=== PATIENT | female | born 1955 ===

== ENCOUNTER 2021-03-25 04:36 | Emergency (ER) | payer MEDICARE ==
--- NOTE | 2021-03-25 05:55 | Cat Scan Report ---
CT head/brain wo con INDICATION: Frontal headache, pain on eyes. TECHNIQUE: Routine CT head. All CT scans at this location are performed using CT dose reduction for A ANDREA by means of automated exposure control. COMPARISON: None. FINDINGS: Intracranial: Ortiz-white matter differentiation is maintained. No intracranial hemorrhage. No extra a xial collection. No hydrocephalus. No herniation. Sinuses: Paranasal sinuses and mastoid air cells are essentially clear. Orbits: Globes are intact. Calvarium: No acute fracture. IMPRESSION: 1. No acute intracranial abnormality. Signer Name: Anthony Olivares MD Signed: 03/25/2021 5:50 AM Workstation Name: [id number]
[2021-03-25 06:10] LABS: Basophils % (Auto) 0.4 % (0.0-1.8); Eosinophils % (Auto) 0.4 % (0.0-4.3); Hematocrit 39.2 % (30.3-42.9); Hemoglobin 13.4 gm/dl (10.1-14.3); Lymphocytes # (Auto) 2.3 K/mm3 (1.2-5.4); Lymphocytes % (Auto) 30.1 % (13.4-35.0); Mean Corpuscular HGB Conc 34 % (30-34); Mean Corpuscular Volume 87 fl (79-97); Monocytes # (Auto) 0.8 K/mm3 (0.0-0.8); Monocytes % (Auto) 10.1 % (0.0-7.3); Platelet Count 383 K/mm3 (140-440); Red Cell Distribution Width 14.6 % (13.2-15.2)
[2021-03-25 06:29] LABS: Albumin 4.7 g/dL (3.9-5)
[2021-03-25] MEDS ORDERED: FAMOTIDINE 20 MG/2 ML INJ IV ONE (07:54)
[2021-03-25] MEDS ORDERED: SODIUM CHLORIDE 0.9% 500 ML 500 ML IV ONE (07:54)
[2021-03-25] MEDS ORDERED: ONDANSETRON 4 MG/2 ML INJ IV ONE (07:55)
--- NOTE | 2021-03-25 07:57 | Emergency Department Report ---
HPI - General Chief Complaint: Weakness Time Seen by Provider: 03/25/21 07:34 - HPI HPI: This is a 66-year-old female presents to the emergency department with a complaint of a frontal headache, pain around both eyes, epigastric discomfort, and nausea with vomiting, has been going on since about 1 PM yesterday. Patient has history of GERD, hypertension, TIA, hypothyroidism. She has not yet taken anything for symptoms prior to presentation. She says that her blood pressure was labile yesterday and may be that was the cause. Her primary care physician is Dr. Kurt Triana, but she has not been able to see him regarding her symptoms. No recent travel or sick contacts at home. Patient is vaccinated against COVID-19. She denies any fever, chest pain, shortness of breath, constipation, diarrhea, dysuria. ED Past Medical Hx - Past Medical History Previous Medical History?: Yes Hx Hypertension: Yes Hx GERD: Yes Additional medical history: TIA, hypothyroidism - Surgical History Past Surgical History?: Yes Additional Surgical History: sinus, knee/both, tubal ligation, partial hysterectomy, hemorrhoidectomy - Medications Home Medications: Home Medications Medication Instructions Recorded Confirmed Last Taken Type Butalb/Acetamin/Caff 50-325-40 1 tab PO Q8H PRN #10 tab 03/25/21 Unknown Rx [Fioricet 50-325-40] Omeprazole 20 mg PO QDAY #20 capsule. 03/25/21 Unknown Rx Ondansetron [Zofran Odt] 4 mg PO Q8HR PRN #15 tab.rapdis 03/25/21 Unknown Rx ED Review of Systems ROS: Stated complaint: HIGH BP/LEFT EYE PAIN Other details as noted in HPI Comment: All other systems reviewed and negative Constitutional: weakness. denies: chills, fever Eyes: denies: eye discharge, vision change ENT: denies: ear pain, throat pain Respiratory: denies: cough, shortness of breath Cardiovascular: denies: chest pain, palpitations Gastrointestinal: abdominal pain, nausea, vomiting Genitourinary: denies: dysuria, discharge Musculoskeletal: denies: back pain, arthralgia Skin: denies: rash, lesions Neurological: headache. denies: numbness, paresthesias Physical Exam - Physical Exam Vital Signs: Vital Signs 03/25/21 04:44 Temperature 98.5 F Pulse Rate 100 H Respiratory 18 Rate Blood Pressure 156/91 O2 Sat by Pulse 98 Oximetry Physical Exam: GENERAL: The patient is well-developed well-nourished. HENT: Normocephalic. Atraumatic. Patient has moist mucous membranes. EYES: Extraocular motions are intact. No nystagmus. NECK: Supple. Trachea is midline. CHEST/LUNGS: Clear to auscultation. There is no respiratory distress noted. HEART/CARDIOVASCULAR: Regular. There is no tachycardia. There is no murmur. ABDOMEN: Abdomen is soft. Mild epigastric tenderness to palpation. No guarding.. Patient has normal bowel sounds. There is no abdominal distention. SKIN: Skin is warm and dry. NEURO: The patient is awake, alert, and oriented. The patient is cooperative. The patient has no focal neurologic deficits. Normal speech. Cranial nerves II through XII grossly intact. No facial asymmetry. No pronator drift or dysmetria. MUSCULOSKELETAL: There is no tenderness or deformity. There is no limitation range of motion. ED Course Vital Signs 03/25/21 04:44 Temperature 98.5 F Pulse Rate 100 H Respiratory 18 Rate Blood Pressure 156/91 O2 Sat by Pulse 98 Oximetry ED Medical Decision Making - Lab Data Result diagrams: 03/25/21 05:45 03/25/21 05:45 Lab Results 03/25/21 03/25/21 03/25/21 Range/Units 05:45 05:45 08:01 WBC 7.5 (4.5-11.0) K/mm3 RBC 4.50 (3.65-5.03) M/mm3 Hgb 13.4 (10.1-14.3) gm/dl Hct 39.2 (30.3-42.9) % MCV 87 (79-97) fl MCH 30 (28-32) pg MCHC 34 (30-34) % RDW 14.6 (13.2-15.2) % Plt Count 383 (140-440) K/mm3 Lymph % (Auto) 30.1 (13.4-35.0) % [place] % (Auto) 10.1 H (0.0-7.3) % Eos % (Auto) 0.4 (0.0-4.3) % Baso % (Auto) 0.4 (0.0-1.8) % Lymph # (Auto) 2.3 (1.2-5.4) K/mm3 [place] # (Auto) 0.8 (0.0-0.8) K/mm3 Eos # (Auto) 0.0 (0.0-0.4) K/mm3 Baso # (Auto) 0.0 (0.0-0.1) K/mm3 Seg Neutrophils % 59.0 (40.0-70.0) % Seg Neutrophils # 4.4 (1.8-7.7) K/mm3 Sodium 142 (137-145) mmol/L Potassium 4.1 (3.6-5.0) mmol/L Chloride 103.6 (98-107) mmol/L Carbon Dioxide 27 (22-30) mmol/L Anion Gap 16 mmol/L BUN 14 (7-17) mg/dL Creatinine 1.0 (0.6-1.2) mg/dL Estimated GFR 55 ml/min BUN/Creatinine Ratio 14 % Glucose 95 (65-100) mg/dL Calcium 10.0 (8.4-10.2) mg/dL Total Bilirubin 0.30 (0.1-1.2) mg/dL AST 17 (5-40) units/L ALT 14 (7-56) units/L Alkaline Phosphatase 116 (35-129) units/L Total Creatine Kinase 71 (30-135) units/L Troponin T < 0.010 (0.00-0.029) ng/mL Total Protein 7.5 (6.3-8.2) g/dL Albumin 4.7 (3.9-5) g/dL Albumin/Globulin Ratio 1.7 % TSH (0.270-4.200) mlU/mL Urine Color (Yellow) Urine Turbidity (Clear) Urine pH (5.0-7.0) Ur Specific [place] (1.003-1.030) Urine Protein (Negative) mg/dL Urine Glucose (UA) (Negative) mg/dL Urine Ketones (Negative) mg/dL Urine Blood (Negative) Urine Nitrite (Negative) Urine Bilirubin (Negative) Urine Urobilinogen (<2.0) mg/dL Ur Leukocyte Esterase (Negative) Urine WBC (Auto) (0.0-6.0) /HPF Urine RBC (Auto) (0.0-6.0) /HPF U Epithel Cells (Auto) (0-13.0) /HPF Hyaline Casts /LPF Urine Mucus /HPF 03/25/21 03/25/21 Range/Units 08:01 Unknown WBC (4.5-11.0) K/mm3 RBC (3.65-5.03) M/mm3 Hgb (10.1-14.3) gm/dl Hct (30.3-42.9) % MCV (79-97) fl MCH (28-32) pg MCHC (30-34) % RDW (13.2-15.2) % Plt Count (140-440) K/mm3 Lymph % (Auto) (13.4-35.0) % [place] % (Auto) (0.0-7.3) % Eos % (Auto) (0.0-4.3) % Baso % (Auto) (0.0-1.8) % Lymph # (Auto) (1.2-5.4) K/mm3 [place] # (Auto) (0.0-0.8) K/mm3 Eos # (Auto) (0.0-0.4) K/mm3 Baso # (Auto) (0.0-0.1) K/mm3 Seg Neutrophils % (40.0-70.0) % Seg Neutrophils # (1.8-7.7) K/mm3 Sodium (137-145) mmol/L Potassium (3.6-5.0) mmol/L Chloride (98-107) mmol/L Carbon Dioxide (22-30) mmol/L Anion Gap mmol/L BUN (7-17) mg/dL Creatinine (0.6-1.2) mg/dL Estimated GFR ml/min BUN/Creatinine Ratio % Glucose (65-100) mg/dL Calcium (8.4-10.2) mg/dL Total Bilirubin (0.1-1.2) mg/dL AST (5-40) units/L ALT (7-56) units/L Alkaline Phosphatase (35-129) units/L Total Creatine Kinase (30-135) units/L Troponin T (0.00-0.029) ng/mL Total Protein (6.3-8.2) g/dL Albumin (3.9-5) g/dL Albumin/Globulin Ratio % TSH 0.856 (0.270-4.200) mlU/mL Urine Color Yellow (Yellow) Urine Turbidity Clear (Clear) Urine pH 5.0 (5.0-7.0) Ur Specific [place] 1.023 (1.003-1.030) Urine Protein <15 mg/dl (Negative) mg/dL Urine Glucose (UA) Neg (Negative) mg/dL Urine Ketones Tr (Negative) mg/dL Urine Blood Neg (Negative) Urine Nitrite Neg (Negative) Urine Bilirubin Neg (Negative) Urine Urobilinogen < 2.0 (<2.0) mg/dL Ur Leukocyte Esterase Neg (Negative) Urine WBC (Auto) 1.0 (0.0-6.0) /HPF Urine RBC (Auto) 1.0 (0.0-6.0) /HPF U Epithel Cells (Auto) 3.0 (0-13.0) /HPF Hyaline Casts 7 /LPF Urine Mucus 3+ /HPF - EKG Data -: EKG Interpreted by Me EKG shows normal: sinus rhythm, axis, intervals, QRS complexes, ST-T waves Rate: normal - EKG Data When compared to previous EKG there are: previous EKG unavailable Interpretation: normal EKG - Radiology Data Radiology results: report reviewed, image reviewed interpreted by me: Chest x-ray does not show any acute process. There are no pleural effusions, obvious pneumonia and there is no pneumothorax. No widened mediastinum. Abdominal x-ray shows nonspecific nonobstructive bowel gas. CT head/brain wo con INDICATION: Frontal headache, pain on eyes. TECHNIQUE: Routine CT head. All CT scans at this location are performed using CT dose reduction for ALARA by means of automated exposure control. COMPARISON: None. FINDINGS: Intracranial: Ortiz-white matter differentiation is maintained. No intracranial hemorrhage. No extra axial collection. No hydrocephalus. No herniation. Sinuses: Paranasal sinuses and mastoid air cells are essentially clear. Orbits: Globes are intact. Calvarium: No acute fracture. IMPRESSION: 1. No acute intracranial abnormality. - Medical Decision Making This patient presents to the emergency department with complaint of frontal headache, headache behind the eyes, some nausea with vomiting, epigastric abdominal pain. I examined the patient does not have any focal, motor or sensory deficits and her cranial nerves are intact. Heart and lung sounds are normal to auscultation. There is very mild epigastric tenderness to palpation. CT of the head without contrast does not show any hemorrhage, large vessel occlusion, or any other acute process. Chest x-ray does not show any pneumonia, pleural effusions, pneumothorax, widened mediastinum, or any other acute process. Abdominal x-ray does not show any shows nonspecific nonobstructive bowel gas and there is no free air. Labs have been mostly unremarkable including CBC, metabolic panel, lipase, normal thyroid function, negative troponin, urinalysis. Patient was given some pain medication, antiemetics, GI cocktail. Patient was reevaluated multiple times over multiple hours and is feeling improved. She was seen ambulatory in the emergency department and both appears and feels stable. She was able to pass an oral challenge. She has good outpatient follow-up with primary care and gastroenterology. She will return to the emergency department with any worsening of her symptoms or with any acute distress. Critical Care Time: No Critical care attestation.: If time is entered above; I have spent that time in minutes in the direct care of this critically ill patient, excluding procedure time. ED Disposition Clinical Impression: Epigastric abdominal pain Headache Qualifiers: Headache type: unspecified Headache chronicity pattern: unspecified pattern Intractability: not intractable Qualified Code(s): R51.9 - Headache, unspecified Nausea & vomiting Qualifiers: Vomiting type: unspecified Vomiting Intractability: unspecified Qualified Code(s): R11.2 - Nausea with vomiting, unspecified GERD (gastroesophageal reflux disease) Qualifiers: Esophagitis presence: esophagitis presence not specified Qualified Code(s): K21.9 - Gastro-esophageal reflux disease without esophagitis Disposition: DC- TO HOME OR SELFCARE Is pt being admited?: No Condition: Stable Instructions: Abdominal Pain, Adult, Nausea and Vomiting, Adult, Gastroesophageal Reflux Disease, Adult Additional Instructions: Please follow-up with your primary care physician and county home demonstrator in the next few days. Take all medications as prescribed. Please try to avoid any alcohol, acidic foods, spicy foods, excessive caffeine. Increase your oral rehydration. Return to the emergency department with any worsening of your symptoms, new or concerning symptoms not addressed during this current emergency department visit, or with any acute distress. Prescriptions: Butalb/Acetamin/Caff 50-325-40 [Fioricet 50-325-40] 1 tab PO Q8H PRN #10 tab PRN Reason: Headache Omeprazole 20 mg PO QDAY #20 capsule. Ondansetron [Zofran Odt] 4 mg PO Q8HR PRN #15 tab.rapdis PRN Reason: Nausea Referrals: KURT TRIANA JR, MD [Primary Care Provider] - 2-3 Days
[2021-03-25] MEDS ORDERED: SODIUM CHLORIDE 0.9% 250ML 250 ML ONE (08:55)
[2021-03-25] MEDS ORDERED: SODIUM CHLORIDE 0.9% 1000 ML 1,000 ML ONE (08:56)
[2021-03-25] MEDS ORDERED: ALUM-MAG HYDROXIDE-SIMETHICONE 200-200-20MG/5ML ORAL LIQD 30 ML PO ONE (08:57)
[2021-03-25] MEDS ORDERED: LIDOCAINE VISCOUS 2% 15 ML ORAL LIQD PO ONE (08:58)
[2021-03-25] MEDS ORDERED: MORPHINE 4 MG/1 ML INJ IV ONE (09:51)
[2021-03-25 10:59] LABS: Bilirubin,Urine NEG (Negative); Blood,Urine NEG (Negative); Color,Urine Yellow (Yellow); Hyaline Casts,Urine 7 /LPF; Mucus,Urine 3+ /HPF; Protein,Urine <15 mg/dL mg/dL (Negative); Urobilinogen,Urine < 2.0 mg/dL (<2.0)
[2021-03-25 12:22] VITALS: BP 146/71
--- NOTE | 2021-03-25 12:24 | XRay Report ---
ABDOMEN 4 VIEW(S) INDICATION / CLINICAL INFORMATION: Abd pain. COMPARISON: None available. FINDINGS: TUBES / LINES: None. BOWEL GAS PATTERN: No significant abnormality. FREE AIR / EXTRALUMINAL GAS: None seen. CHEST: Clear lungs with normal heart size. IMPRESSION: 1. No significant abnormality. Signer Name: Olaf Hylton MD Signed: 03/25/2021 12:19 PM Workstation Name: [id number]
--- NOTE | 2021-03-29 17:29 | Electrocardiograph Report ---
[facility] Test Date: 2021-03-25 Test Time: 09:46:29 Pat Name: NATALY CANDELARIO Department: Room: Gender: F Board Certified Family Physician: NURSE : [id number] Requested By: NILSA CONDE Order Number: [id number] Reading MD: Lester Vital Measurements Intervals [place] Rate: 62 P: 65 OR: 202 QRS: 53 QRSD: 97 T: 26 QT: 419 QTc: 426 Interpretive Statements Sinus rhythm Probable left atrial enlargement No previous ECG available for comparison Electronically Signed On 03-29-2021 17:29:32 EDT by Lester Vital
== END 2021-03-25 12:53 | disposition home or self-care (01) ==
LOC: ED 04:36
DX: K21.9 Gastro-esophageal reflux disease without esophagitis (principal); R51.9 Headache, unspecified; R10.13 Epigastric pain; R11.2 Nausea with vomiting, unspecified; I10 Essential (primary) hypertension; Z98.890 Other specified postprocedural states; Z90.89 Acquired absence of other organs; Z79.899 Other long term (current) drug therapy; Z88.0 Allergy status to penicillin
CPT/HCPCS: 36415; 70450; 74022; 80053; 81001; 82550; 84443; 84484; 85025; 93005; 96374; 96375; 99285; J2270; J2405; J7030; J7050

== ENCOUNTER 2021-10-22 17:17 | Emergency (ER) | payer MEDICARE ==
--- NOTE | 2021-10-22 20:58 | Emergency Department Report ---
ED General Adult HPI - General Chief complaint: High BP Stated complaint: HB/AB/NAUSEA Time Seen by Provider: 10/22/21 20:07 Source: patient Mode of arrival: Ambulatory Limitations: No Limitations - History of Present Illness Initial comments: 66-year-old female patient of blood presents emerged department complaining of elevated blood pressure. She was told at home health nurse to come to have a blood pressure evaluated because it was 155/102 she was asymptomatic. She seen her primary care provider this past October 18 for hypertension losartan was increased from 50 up to 100 and amlodipine was added. This is all treated from her field visits to the dentist to get a dental extraction due to hypertension. She is remained relatively stable and asymptomatic throughout the whole course of action which is been going on for roughly 1 month to regulate her hypertension. Currently no chest pain, no palpitations, no presyncope, no dizziness, no nausea, no no vomiting. Her teeth have continued to worsen -: Gradual Radiation: non-radiation Severity scale (0 -10): 7 - Related Data Previous Rx's Medication Instructions Recorded Last Taken Type Butalb/Acetamin/Caff 50-325-40 1 tab PO Q8H PRN #10 tab 03/25/21 Unknown Rx [Fioricet 50-325-40] Omeprazole 20 mg PO QDAY #20 capsule. 03/25/21 Unknown Rx Ondansetron [Zofran Odt] 4 mg PO Q8HR PRN #15 tab.rapdis 03/25/21 Unknown Rx Chlorhexidine Mouthwash [Peridex] 15 ml MM BID #1 bottle 10/22/21 Unknown Rx Lidocaine Viscous 2% 5 ml MM Q3H PRN #120 udc 10/22/21 Unknown Rx clindamycin HCL [Clindamycin cap] 75 mg PO TID #21 cap 10/22/21 Unknown Rx Allergies Allergy/AdvReac Type Severity Reaction Status Date / Time Penicillins Allergy Unknown Verified 03/25/21 04:52 ED Review of Systems ROS: Stated complaint: HB/AB/NAUSEA Other details as noted in HPI Comment: All other systems reviewed and negative ED Past Medical Hx - Past Medical History Hx Hypertension: Yes Hx GERD: Yes Additional medical history: TIA, hypothyroidism - Surgical History Additional Surgical History: sinus, knee/both, tubal ligation, partial hysterectomy, hemorrhoidectomy - Social History Smoking Status: Never Smoker - Medications Home Medications: Home Medications Medication Instructions Recorded Confirmed Last Taken Type Butalb/Acetamin/Caff 50-325-40 1 tab PO Q8H PRN #10 tab 03/25/21 Unknown Rx [Fioricet 50-325-40] Omeprazole 20 mg PO QDAY #20 capsule. 03/25/21 Unknown Rx Ondansetron [Zofran Odt] 4 mg PO Q8HR PRN #15 tab.rapdis 03/25/21 Unknown Rx Chlorhexidine Mouthwash [Peridex] 15 ml MM BID #1 bottle 10/22/21 Unknown Rx Lidocaine Viscous 2% 5 ml MM Q3H PRN #120 udc 10/22/21 Unknown Rx clindamycin HCL [Clindamycin cap] 75 mg PO TID #21 cap 10/22/21 Unknown Rx ED Physical Exam - General Limitations: No Limitations General appearance: alert, in no apparent distress - Head Head exam: Present: atraumatic, normocephalic - Eye Eye exam: Present: normal appearance, PERRL, EOMI Pupils: Present: normal accommodation - ENT ENT exam: Present: normal exam, mucous membranes moist, TM's normal bilaterally - Neck Neck exam: Present: normal inspection, full ROM - Respiratory Respiratory exam: Present: normal lung sounds bilaterally. Absent: respiratory distress, wheezes, rales, chest wall tenderness, accessory muscle use - Cardiovascular Cardiovascular Exam: Present: regular rate, normal rhythm. Absent: systolic murmur, diastolic murmur, rubs, gallop - GI/Abdominal GI/Abdominal exam: Present: soft, normal bowel sounds - Extremities Exam Extremities exam: Present: normal inspection - Back Exam Back exam: Present: normal inspection. Absent: CVA tenderness (R), CVA tenderness (L) - Neurological Exam Neurological exam: Present: alert, oriented X3, CN II-XII intact, normal gait - Psychiatric Psychiatric exam: Present: normal affect, normal mood. Absent: anxious, flat affect, suicidal ideation - Skin Skin exam: Present: warm, dry, intact, normal color. Absent: rash, cyanosis, diaphoretic, erythema, petechiae, pallor, abrasion ED Course Vital Signs 10/22/21 17:55 Temperature 98.1 F Pulse Rate 70 Respiratory 18 Rate Blood Pressure 177/83 [Right] O2 Sat by Pulse 100 Oximetry Critical care attestation.: If time is entered above; I have spent that time in minutes in the direct care of this critically ill patient, excluding procedure time. ED Disposition Clinical Impression: HTN (hypertension), Dentalgia Disposition: HOME / SELF CARE / HOMELESS Is pt being admited?: No Does the pt Need Aspirin: No Condition: Stable Instructions: Dental Abscess, [id number], Dental Extraction, [id number], Hypertension, Adult, [id number], Preventing Hypertension, Hypertension (ED) Prescriptions: clindamycin HCL [Clindamycin cap] 75 mg PO TID #21 cap Lidocaine Viscous 2% 5 ml MM Q3H PRN #120 udc PRN Reason: Pain, Moderate (4-6) Chlorhexidine Mouthwash [Peridex] 15 ml MM BID #1 bottle Referrals: [facility] [Provider Group] - 3-[address] [facility] [Outside] - 3-5 Days
[2021-10-22 22:41] VITALS: BP 165/73
== END 2021-10-22 22:40 | disposition home or self-care (01) ==
LOC: ED 17:17
DX: I10 Essential (primary) hypertension (principal); K08.89 Other specified disorders of teeth and supporting structures; K21.9 Gastro-esophageal reflux disease without esophagitis; E03.9 Hypothyroidism, unspecified; Z90.710 Acquired absence of both cervix and uterus; Z79.899 Other long term (current) drug therapy; Z88.0 Allergy status to penicillin
CPT/HCPCS: 99282